=== PATIENT | male | born 1945 | race Two or more races ===

== ENCOUNTER 2019-12-21 12:55 | Emergency (ER) | payer MEDICARE, BC ==
--- OUTSIDE RECORDS SUMMARY | 2019-12-21 13:03 | XMS REPORT | Continuity of Care Document ---
:1945 External Reference #:[id number] Author Name Walter Howard M.D. (transmitted by agent of provider Cristina Aguila) Address [address] [place] [id number] Care Team Providers Name Role Phone Kashif Rebolledo M.D. - Family Medicine Care Team Information Carbon Setter Problems Description No Information Available Social History Type Date Description Comments Sex Unknown ETOH Use Currently consumes alcohol socially Recreational Drug Use Never Used Drugs Allergies, Adverse Reactions, Alerts Description No Known Drug Allergies Medications Active Medications SIG Qnty Indications Ordering Date Provider Lisinopril TK 1 T PO qam Unknown 5mg Tablets Hydrochlorothiazide TK 1 T PO qd Unknown 12.5mg Tablets Cilostazol TK 1 T PO bid Unknown 50mg Tablets Clopidogrel Bisulfate TK 1 T PO D Unknown 75mg Tablets Aspir-Low 1 by mouth Unknown 81mg Tablets DR every day Immunizations Description No Information Available Vital Signs Date Vital Result Comment 07/20/2018 1:31pm BP Systolic Sitting Right Arm 143 mmHg BP Diastolic Sitting Right Arm 94 mmHg Heart Rate 74 /min Respiratory Rate 14 /min Height 69 inches 5'9" Weight 208.00 lb BMI (Body Mass Index) 30.7 kg/m2 BSA (Body Surface Area) 2.10 m2 [place] body weight in kilograms 73 kg O2 % BldC Oximetry 100 % 04/21/2018 10:49am BP Systolic 107 mmHg BP Diastolic 66 mmHg Heart Rate 86 /min Respiratory Rate 16 /min Height 69 inches 5'9" Weight 220.00 lb BMI (Body Mass Index) 32.5 kg/m2 BSA (Body Surface Area) 2.15 m2 [place] body weight in kilograms 73 kg O2 % BldC Oximetry 97 % Results Description No Information Available Procedures Description No Information Available Medical Devices Description No Information Available Encounters Description No Information Available Assessments Description No Information Available Plan of Treatment 07/20/2018 - Walter Howard M.D.K63.1 Perforation of intestine ( nontraumatic)Comments:Clear recommendation made for follow-up colonoscopy declined repeatedly.We will put him in for a recall for few years time. He's been asked to call or return if he has a change of heart regarding the recommendation about follow-up colonoscopy. Functional Status Description No Information Available Mental Status Description No Information Available Referrals Description No Information Available
--- OUTSIDE RECORDS SUMMARY | 2019-12-21 13:03 | XMS REPORT | Continuity of Care Document ---
:1945 External Reference #:[id number] Author Name Kashif Rebolledo M.D. Address [address] [place] [id number] Care Team Providers Name Role Phone Grant Gore LPT - Physical Care Team Information Group Work Program Aide Therapist Kashif Rebolledo MD - Family Medicine Care Team Information Group Work Program Aide Problems Active Problems Provider Date Tobacco user Janelle Izquierdo FNP Onset: 07/17/2014 Mixed hyperlipidemia Kashif Rebolledo M.D. Onset: 01/04/2013 Coronary arteriosclerosis Kashif Rebolleod M.D. Onset: 01/04/2013 Benign essential hypertension Kashif Rebolledo M.D. Onset: 01/04/2013 Peripheral vascular disease Kashif Rebolledo M.D. Onset: 01/04/2013 Carotid artery occlusion Kashif Rebolledo M.D. Onset: 01/04/2013 Hand joint pain Kashif Rebolledo M.D. Onset: 01/04/2013 Degeneration of lumbar intervertebral disc Kashif Rebolledo M.D. Onset: 01/04 Low back pain Kashif Rebolledo M.D. Onset: 01/04/2013 Contact dermatitis Kashif Rebolledo M.D. Onset: 01/04/2013 Osteoarthritis Kashif Rebolledo M.D. Onset: 01/04/2013 Contracture of joint of hand Kashif Rebolledo M.D. Onset: 01/04/2013 Note: DEP Hernia of anterior abdominal wall Kashif Rebolledo M.D. Onset: 06/23/2015 Essential hypertension Kashif Rebolledo M.D. Onset: 11/21/2015 Degeneration of lumbosacral intervertebral Kashif Rebolledo M.D. Onset: 11/21 disc Social History Type Date Description Comments Sex Unknown Tobacco Use Start: Unknown End: Quit 2013 Unknown Tobacco Use Start: Unknown Light tobacco smoker (10 or fewer cigarettes/day) Smoking Status Reviewed: 05/31/19 Light tobacco smoker (10 or fewer cigarettes/day) ETOH Use Currently consumes alcohol PT DRINKS ABOUT 2 TIMES A WEEK Tobacco Use Start: Unknown Patient is a current smoker, smokes some days Allergies, Adverse Reactions, Alerts Description No Known Drug Allergies Medications Active Medications SIG Qnty Indications Ordering Provider Date Lisinopril take 1 tablet by 90tabs I10 Kashif Rebolledo, 04/24/2012 5mg Tablets mouth every M.D. morning Aspir-81 1 by mouth every 100tabs I73.9 Kashif Rebolledo, 04/14/2012 81mg Tablets day M.D. I25.10 I65.23 Clopidogrel Bisulfate 1 tab by mouth 90tabs I73.9 Kashif Rebolledo, 75mg every day M.D. Tablets I25.10 I65.23 Cilostazol 50mg Tablets TK 1 T PO bid I65.23 Unknown Immunizations CPT Code Status Date Vaccine Lot # [id number] Refused 08/16/2014 Flu Vaccine Vital Signs Date Vital Result Comment 12/04/2019 10:01am BP Systolic 128 mmHg BP Diastolic 72 mmHg Height 69.5 inches 5'9.50" Weight 209.00 lb BMI (Body Mass Index) 30.4 kg/m2 Heart Rate 90 /min Respiratory Rate 16 /min 06/01/2019 12:25pm BP Systolic 138 mmHg BP Diastolic 82 mmHg Heart Rate 89 /min Respiratory Rate 18 /min Results Test Acquired Date Facility Test Result H/L Range Note Laboratory test 12/04/2019 [facility] TSH, <pending> finding 113 [facility] (607)- - Hemoglobin A1c <pending> Vitamin D 25 Hydroxy <pending> Procedures Date Code Description Status 12/04/2019 05475 EKG Completed Medical Devices Description No Information Available Encounters Type Date Location Provider Dx Diagnosis Office Visit 12/04/2019 [facility] Kashif Rebolledo, I10 Essential ( primary) 10:15a M.D. hypertension E78.2 Mixed hyperlipidemia I65.23 Occlusion and stenosis of bilateral carotid arteries J44.9 Chronic obstructive pulmonary disease, unspecified I25.10 Athscl heart disease of [place] coronary artery w/o ang pctrs F17.210 Nicotine dependence, cigarettes, uncomplicated M15.9 Polyosteoarthritis, unspecified M24.549 Contracture, unspecified hand I73.9 Peripheral vascular disease, unspecified L20.9 Atopic dermatitis, unspecified J30.9 Allergic rhinitis, unspecified R73.01 Impaired fasting glucose E55.9 Vitamin D deficiency, unspecified M79.643 Pain in unspecified hand K43.9 Ventral hernia without obstruction or gangrene M51.37 Other intervertebral disc degeneration, lumbosacral region R97.20 Elevated prostate specific antigen [PSA] Z00.01 Encounter for general adult medical exam w abnormal findings Z28.20 Immuniz not crd out bec patient decision for unsp reason Assessments Date Code Description Provider 12/04/2019 I10 Essential (primary) hypertension Kashif Rebolledo M.D. 12/04/2019 E78.2 Mixed hyperlipidemia Kashif Rebolledo M.D. 12/04/2019 I65.23 Occlusion and stenosis of bilateral carotid Kashif Rebolledo M.D. arteries 12/04/2019 J44.9 Chronic obstructive pulmonary disease, Kashif Rebolledo M.D. unspecified 12/04/2019 I25.10 Atherosclerotic heart disease of [place] Kashif Rebolledo M.D. coronary artery without angina pectoris 12/04/2019 F17.210 Nicotine dependence, cigarettes, Kashif Rebolledo M.D. uncomplicated 12/04/2019 M15.9 Polyosteoarthritis, unspecified Kashif Rebolledo M.D. 12/04/2019 M24.549 Contracture, unspecified hand Amaury, Ahmad M., M.D. 12/04/2019 I73.9 Peripheral vascular disease, unspecified Kashif Rebolledo M.D. 12/04/2019 L20.9 Atopic dermatitis, unspecified Kashif Rebolledo M.D. 12/04/2019 J30.9 Allergic rhinitis, unspecified Kashif Rebolledo M.D. 12/04/2019 R73.01 Impaired fasting glucose Kashif Rebolledo M.D. 12/04/2019 E55.9 Vitamin D deficiency, unspecified Kashif Rebolledo M.D. 12/04/2019 M79.643 Pain in unspecified hand Kashif Rebolledo M.D. 12/04/2019 K43.9 Ventral hernia without obstruction or Kashif Rebolledo M.D. gangrene 12/04/2019 M51.37 Other intervertebral disc degeneration, Kashif Rebolledo M.D. lumbosacral region 12/04/2019 R97.20 Elevated prostate specific antigen [PSA] Kashif Rebolledo M.D. 12/04/2019 Z00.01 Encounter for general adult medical Kashif Rebolledo M.D. examination with abnormal findings 12/04/2019 Z28.20 Immunization not carried out because of Kashif Rebolledo M.D. patient decision for unspecified reason Plan of Treatment Future Appointment(s):01/02/2020 10:00 am - Kashif Rebolledo M.D. at [facility]12/04/2019 - Kashif Rebolledo M.D.I10 Essential (primary) hypertensionComments:CHECK BP TIW ( PRN)F/U LABDIET AND FLUID COUNSELING LOW SODIUM DIETWT LOSSF/U LABE78.2 Mixed hyperlipidemiaComments:DIET REVIEWED CONTINUE DIETWT LOSSF/U LAB FBWI65.23 Occlusion and stenosis of bilateral carotid arteriesComments:STABLE AND ASYMPTOMATIC F/U WITH SURGERY WITH YEARLY CAROTID U/SJ44.9 Chronic obstructive pulmonary disease, unspecifiedComments: INCREASE PO FLUIDRESTSMOKING KGWDXMDQZC37.10 Atherosclerotic heart disease of [place] coronary artery without angina pectorisComments:F/U WITH CARDIOLOGY CONTINUE WITH RX AND F/U LAB SMOKING YWRPJWUTEH73.210 Nicotine dependence, cigarettes, uncomplicatedComments:SMOKING CESSATION ILEQHTLTFAKK44.9 Polyosteoarthritis, unspecifiedComments:EXERCISE/HEAT/MESSAGETYLENOL OR MOTRIN PRNAVOID HEAVY LIFTINGWT LOSSM24.549 Contracture, unspecified handComments: EXTENSION EXERCISES REVIEWEDUSE HAND SPLIT PRNEXERCISE/HEAT/QHNDIINU78.9 Peripheral vascular disease, unspecifiedComments:SKIN CARE FOOT CARE PODIATRY PRN CAREL20.9 Atopic dermatitis, unspecifiedComments:SKIN CARE INSTRUCTIONS LOTION OR BABY OIL 2-3 APPLICATION PER DAYUSE MOISTURIZING SOAPAVOID PROLONGED WATER EXPOSUREAVOID USING HOT WATER IN VJMTISZ54.9 Allergic rhinitis, unspecifiedComments:INCREASE PO FLUID USE ANTIHISTAMINE PRN SECOND HAND SMOKING AVOIDANCE SMOKING QADKMSUJOF62.01 Impaired fasting glucoseComments:F/U HGAICFS QAC AN HS PRNLOW GLUCOSE DIETE55.9 Vitamin D deficiency, unspecifiedComments: INCREASE EXPOSURE TO SUNREVIEW OF DIETM79.643 Pain in unspecified handComments: EXERCISE/HEAT/MESSAGETYLENOL OR MOTRIN PRNAVOID HEAVY LIFTINGWT LOSSK43.9 Ventral hernia without obstruction or gangreneComments:ABDOMINAL BINDER HQQXKZVDFWB72.37 Other intervertebral disc degeneration, lumbosacral regionComments:EXERCISE/HEAT /MESSAGEAVOID HEAVY LIFTING WT LOSSTYLENOL OR MOTRIN PRNR97.20 Elevated prostate specific antigen [PSA]Comments:F/U WITH UROLOGY PRNF/U PSAZ00.01 Encounter for general adult medical examination with abnormal findingsComments:GOOD NUTRITION /EXERCISEDENTAL/ FLOSSING/ SELF CAREDROWNING/ SUN SAFETYSEAT BELT/ DRIVING SAFETYVIOLENCE PREVENTION/ GUN SAFETY "SAFE AT HOME"EDUCATION GOALS/ ACTIVITIESSOCIAL INTERACTIONFAMILY FUNCTIONINGSELF CONTROLDEPRESSION/ ANXIETYYEARLY PHYSICAL WELLNESS GJGCOEKIJUM62.20 Immunization not carried out because of patient decision for unspecified reasonComments:DECLINED FLU VACCINE , COUNCELLING PROVIDED Functional Status Functional Condition Comment Date Status Glasses Active Trifocal glasses Active Mental Status Description No Information Available Referrals Description No Information Available
[2019-12-21 13:26] VITALS: BP 170/94
--- NOTE | 2019-12-21 13:31 | UC ---
Hypertension HPI - HPI Summary HPI Summary: 74 yo man who comes with concern of increasing blood pressure for the past weeks , since his HCTZ was stopped on 12/05. he has a log of increasing blood pressures , with experience of headache on 12/18 which mostly resolved with use of ibuprofen. He is feeling unwell, but does not have chest pain, palpitations, shortness of breath or edema. He has no hx of stroke and reports no neurological symptoms aside from the headache. He has no nausea or vomiting. I contacted Dr. Rebolledo: HCTZ was stopped due to orthostatic symptoms, with occasional dizziness when blood pressure systolic was less than 120. He did not have a hx of falls. Mr. Chambers says the dizziness was mild, and mostly occurred on days when he was less active. - History of Current Complaint Chief Complaint: UCGeneralIllness Stated Complaint: BLOOD PRESSURE CONCERN Time Seen by Provider: 12/21/19 13:10 Hx Obtained From: Patient Onset/Duration: Gradual Onset, Lasting Weeks - 3 Aggravating Factor(s): Nothing Alleviating Factor(s): Nothing Associated Signs And Symptoms: Positive: Headaches. Negative: Chest Pain, Vision Changes, Numbness, Tingling, Weakness, Dizziness, SOB, Swelling Current Medications: ACEI - Risk Factors Cardiac Risk Factors: Hypertension, Prior VT - Allergies/Home Medications Allergies/Adverse Reactions: Allergies Allergy/AdvReac Type Severity Reaction Status Date / Time No Known Allergies Allergy Verified 12/21/19 13:07 Home Medications: Home Medications Clopidogrel TAB* [Plavix TAB*] 75 mg PO DAILY 06/30/15 [History Confirmed ] Aspirin EC TAB* [Ecotrin EC Low Dose 81 MG*] 81 mg PO DAILY 12/21/19 [History Confirmed 12/21/19] Cilostazol TAB* [Pletal TAB*] 50 mg PO BID 12/21/19 [History Confirmed 12/21/19] Lisinopril TAB* [Prinivil TAB*] 5 mg PO DAILY 12/21/19 [History Confirmed ] hydroCHLOROthiazide [Hydrochlorothiazide] 12.5 mg PO DAILY #30 tablet 12/21/19 [ Rx] PMH/Surg Hx/FS Hx/Imm Hx Cardiovascular History: Cardiac Disease, Hypertension, Other - Peripheral vascular disease. - Surgical History Surgical History: Yes Surgery Procedure, Year, and Place: Stents placed bilat femoral arteries, carotid artery - Social History Occupation: Retired Lives: With Family Alcohol Use: <3 beers/weekly Substance Use Type: None Smoking Status (MU): Light Every Day Tobacco Smoker Type: Cigarettes Amount Used/How Often: <1/2 PPD Length of Time of Smoking/Using Tobacco: Since Age 18 Review of Systems All Other Systems Reviewed And Are Negative: Yes Constitutional: Positive: Negative Skin: Positive: Negative Eyes: Positive: Negative. Negative: Blurred Vision ENT: Positive: Negative Respiratory: Positive: Negative. Negative: Shortness Of Breath, Cough Cardiovascular: Negative: Palpitations, Chest Pain Gastrointestinal: Positive: Negative Genitourinary: Positive: Negative Motor: Positive: Negative Neurovascular: Positive: Negative Musculoskeletal: Positive: Negative Neurological/Mental Status: Positive: Headache - now resolved. Psychological: Positive: Negative Is Patient Immunocompromised?: No Physical Exam Triage Information Reviewed: Yes Appearance: Well-Appearing - alert elderly man Vital Signs: Initial Vital Signs Temp 98.1 F 12/21/19 13:06 Pulse 76 12/21/19 13:06 Resp 18 12/21/19 13:06 BP 195/102 12/21/19 13:06 Pulse Ox 100 12/21/19 13:06 Eye Exam: Other - ARMANDO, could not see fundi well Eyes: Positive: Conjunctiva Clear ENT: Positive: Pharynx normal Neck exam: Other - no carotid bruits Neck: Positive: Supple, Nontender, No Lymphadenopathy Respiratory: Positive: Lungs clear, Normal breath sounds Abdominal Exam: Other - obese abdomen with midline scar Abdomen Description: Positive: Nontender, No Organomegaly, Soft, Distended Musculoskeletal: Positive: Strength Intact, Edema @ - trace of pitting edema both ankles Neurological: Positive: Alert, Muscle Tone Normal Psychological Exam: Normal Skin Exam: Normal Hypertension Course/Dx - Course Course Of Treatment: Resume HCTZ. Dr. Rebolledo is aware that he will be resuming this. - Differential Dx/Diagnosis Differential Diagnosis/HQI PQRI: Hypertension Provider Diagnosis: Hypertension - Physician Notifications Discussed Patient Care With: Kashif Rebolledo Time Discussed With Above Provider: 13:50 Discharge ED - Sign-Out/Discharge Documenting (check all that apply): Patient Departure All imaging exams completed and their final reports reviewed: No Studies - Discharge Plan Condition: Stable Disposition: HOME Prescriptions: hydroCHLOROthiazide [Hydrochlorothiazide] 12.5 mg PO DAILY #30 tablet Patient Education Materials: Chronic Hypertension (ED) Referrals: Kashif Rebolledo MD [Primary Care Provider] - Additional Instructions: As discussed, resume use of hydrochlorthiazide today, 12.5mg daily. Take the first dose today, and tomorrow go back to one daily in the morning. Continue lisinopril 5mg daily. Continue to take home blood pressure readings, but it will take up to a week to see a consistent drop in your blood pressure. Follow up with Dr. Rebolledo on 01/01 as arranged. If you have chest pain or any symptoms of stroke such as sided weakness of difficulty with speech, please proceed to the emergency room. - Billing Disposition and Condition Condition: STABLE Disposition: Home
== END 2019-12-21 14:21 | disposition home or self-care (01) ==
LOC: UCCORT 12:55
DX: I10 Essential (primary) hypertension (principal); I73.9 Peripheral vascular disease, unspecified; Z79.82 Long term (current) use of aspirin; Z79.899 Other long term (current) drug therapy; F17.210 Nicotine dependence, cigarettes, uncomplicated
CPT/HCPCS: 99212; G0463

== ENCOUNTER 2021-07-16 15:17 | Inpatient (IN) ==
[2021-07-16 16:37] LABS: ABS Basophils 0.1 10^3/ul (0-0.2); ABS Eosinophils 0.4 10^3/ul (0-0.6); ABS Lymphocytes 1.6 10^3/ul (1.0-4.8); ABS Monocytes 0.6 10^3/ul (0-0.8); ABS Neutrophils 5.5 10^3/ul (1.5-7.7); Eosinophil % 4.5 %; Hematocrit 38 % (42-52); Hemoglobin 13.1 g/dL (14.0-18.0); Lymphocyte % 19.1 %; Mean Corpuscular HGB Conc 35 g/dL (31-36); Mean Corpuscular Hemoglobin 30 pg (27-31); Mean Corpuscular Volume 87 fL (80-94); Mean Platelet Volume 6.9 fL (7.4-10.4); Platelet Count 298 10^3/uL (150-450); Red Blood Count 4.32 10^6 /uL (4.18-5.48); Red Cell Distribution Width 15 % (10-15); White Blood Count 8.1 10^3/uL (3.5-10.8)
[2021-07-16 16:55] LABS: Troponin I 0.01 ng/mL (<0.03)
[2021-07-16 17:26] LABS: TSH Ultra Thyroid Stim Horm 1.99 mcIU/mL (0.34-5.60)
[2021-07-16 17:32] LABS: ALT 5 U/L (7-52); Albumin/Globulin Ratio 1.8 (1-3); Alkaline Phosphatase 74 U/L (35-149); Blood Urea Nitrogen 13 mg/dL (6-24); CO2 Carbon Dioxide 27 mmol/L (22-32); Calcium 8.8 mg/dL (8.6-10.3); Chloride 89 mmol/L (101-111); EGFR African American 78.3 (>60); EGFR Non-African American 64.7 (>60); Globulin 2.2 g/dL (2-4); Glucose 119 mg/dL (70-100); Sodium 124 mmol/L (135-145); Total Protein 6.2 g/dL (6.4-8.9)
[2021-07-16 17:41] LABS: Anion Gap 8 mmol/L (2-11)
[2021-07-16] MEDS ORDERED: NS 0.9% 500 ml BAG 500 ML IV SCH (18:00)
[2021-07-16] MEDS ORDERED: Al Hydrox/Mg Hydrox/Simet LIQ 30 ML UDC PO PRN (18:38)
[2021-07-16 20:44] LABS: Rapid COVID-19 Molecular Undetected (Undetected)
[2021-07-16] MEDS ORDERED: Iohexol 300 (CONTRAST) 10 ML SDV IV ONE (21:00)
[2021-07-16] MEDS: Heparin 5000 UNITS/ML 1 mL VIAL SUBCUT SCH (22:30)
[2021-07-16 23:56] LABS: Magnesium 1.6 mg/dL (1.9-2.7)
[2021-07-17] MEDS ORDERED: Magnesium Sulf 4 GM/100 ML IV 4,000 MG/100 ML BAG IVPB ONE (00:08)
[2021-07-17 04:03] LABS: Urine Appearance Clear; Urine Bilirubin Negative (Negative); Urine Blood 1+ (Negative); Urine Color Yellow; Urine Glucose Negative (Negative); Urine Ketones Negative (Negative); Urine Nitrite Negative (Negative); Urine Protein Negative (Negative); Urine Urobilinogen Negative (Negative)
[2021-07-17 04:19] LABS: Calcium 8.9 mg/dL (8.6-10.3); Potassium 3.8 mmol/L (3.5-5.0)
[2021-07-17 04:25] LABS: EGFR African American 92.8 (>60); EGFR Non-African American 76.7 (>60)
[2021-07-17 04:26] LABS: Troponin I 0.01 ng/mL (<0.03)
[2021-07-17 04:27] LABS: Urine Bacteria Absent (Absent); Urine Red Blood Cell Trace(0-2/hpf) (Absent); Urine White Blood Cell Trace(0-5/hpf) (Absent)
[2021-07-17] MEDS: Heparin 5000 UNITS/ML 1 mL VIAL SUBCUT SCH (06:11)
[2021-07-17 07:25] LABS: Calcium 8.8 mg/dL (8.6-10.3); EGFR African American 96.3 (>60); EGFR Non-African American 79.6 (>60); Potassium 3.6 mmol/L (3.5-5.0)
[2021-07-17] MEDS: Aspirin EC 81 mg TAB.EC (enteric coated) PO SCH (07:47)
[2021-07-17] MEDS ORDERED: NS 0.9% 1000 ml BAG 1,000 ML IV SCH ×2 (08:30→18:26)
[2021-07-17] MEDS ORDERED: NS 0.9% 500 ml BAG 500 ML IV ONE (09:28)
[2021-07-17 11:57] LABS: INR 1.01 (0.86-1.15)
[2021-07-17 12:12] LABS: EGFR African American 87.4 (>60); EGFR Non-African American 72.3 (>60); Potassium 3.6 mmol/L (3.5-5.0)
[2021-07-17 17:15] LABS: Calcium 8.3 mg/dL (8.6-10.3); EGFR African American 95.1 (>60); EGFR Non-African American 78.6 (>60); Potassium 3.5 mmol/L (3.5-5.0)
[2021-07-17 21:39] LABS: Calcium 8.2 mg/dL (8.6-10.3); EGFR African American 97.5 (>60); EGFR Non-African American 80.6 (>60); Potassium 3.5 mmol/L (3.5-5.0)
[2021-07-18 06:34] LABS: ABS Basophils 0.1 10^3/ul (0-0.2); ABS Eosinophils 0.4 10^3/ul (0-0.6); ABS Lymphocytes 2.1 10^3/ul (1.0-4.8); ABS Monocytes 0.5 10^3/ul (0-0.8); ABS Neutrophils 3.4 10^3/ul (1.5-7.7); Eosinophil % 6.5 %; Hematocrit 36 % (42-52); Hemoglobin 12.3 g/dL (14.0-18.0); Lymphocyte % 32.5 %; Mean Corpuscular HGB Conc 34 g/dL (31-36); Mean Corpuscular Hemoglobin 30 pg (27-31); Mean Corpuscular Volume 87 fL (80-94); Mean Platelet Volume 6.7 fL (7.4-10.4); Nucleated Red Blood Cells % 0.1; Platelet Count 251 10^3/uL (150-450); Red Blood Count 4.15 10^6 /uL (4.18-5.48); Red Cell Distribution Width 14 % (10-15); White Blood Count 6.5 10^3/uL (3.5-10.8)
[2021-07-18 06:52] LABS: Calcium 8.2 mg/dL (8.6-10.3); EGFR African American 101.3 (>60); EGFR Non-African American 83.8 (>60); Potassium 3.7 mmol/L (3.5-5.0)
[2021-07-18 08:25] LABS: Magnesium 1.9 mg/dL (1.9-2.7)
[2021-07-18] MEDS: Aspirin EC 81 mg TAB.EC (enteric coated) PO SCH (09:35)
[2021-07-18] MEDS: Ondansetron 4 mg VIAL 2 MG/ML 2 ml VIAL IV PRN (09:36)
[2021-07-18 10:26] LABS: Blood Urea Nitrogen 10 mg/dL (6-24); CO2 Carbon Dioxide 21 mmol/L (22-32); Calcium 7.8 mg/dL (8.6-10.3); Chloride 95 mmol/L (101-111); EGFR African American 97.5 (>60); EGFR Non-African American 80.6 (>60); Glucose 116 mg/dL (70-100); Sodium 123 mmol/L (135-145)
[2021-07-18 11:07] LABS: Anion Gap 7 mmol/L (2-11)
[2021-07-18 16:18] LABS: Calcium 8.2 mg/dL (8.6-10.3); EGFR African American 95.1 (>60); EGFR Non-African American 78.6 (>60); Potassium 3.8 mmol/L (3.5-5.0)
[2021-07-19 04:56] LABS: ABS Basophils 0.1 10^3/ul (0-0.2); ABS Eosinophils 0.6 10^3/ul (0-0.6); ABS Lymphocytes 2.7 10^3/ul (1.0-4.8); ABS Monocytes 0.6 10^3/ul (0-0.8); ABS Neutrophils 4.1 10^3/ul (1.5-7.7); Hematocrit 33 % (42-52); Hemoglobin 11.2 g/dL (14.0-18.0); Lymphocyte % 33.3 %; Mean Corpuscular HGB Conc 34 g/dL (31-36); Mean Corpuscular Hemoglobin 30 pg (27-31); Mean Corpuscular Volume 88 fL (80-94); Mean Platelet Volume 6.7 fL (7.4-10.4); Platelet Count 247 10^3/uL (150-450); Red Blood Count 3.75 10^6 /uL (4.18-5.48); Red Cell Distribution Width 14 % (10-15); White Blood Count 8.1 10^3/uL (3.5-10.8)
[2021-07-19 05:08] LABS: Calcium 8.5 mg/dL (8.6-10.3); EGFR African American 90.6 (>60); EGFR Non-African American 74.9 (>60)
[2021-07-19] MEDS: Aspirin EC 81 mg TAB.EC (enteric coated) PO SCH (08:31)
[2021-07-19] MEDS: Ondansetron 4 mg VIAL 2 MG/ML 2 ml VIAL IV PRN (14:24)
[2021-07-19 15:33] VITALS: BP 137/75
== END 2021-07-19 17:40 | disposition home or self-care (01) | DRG 312 ==
LOC: MEDTELE 15:17 → ED 15:17 → MEDTELE 20:39 → OBSVTOIN 21:26 → SUATTDRO 21:26
PROVIDERS: ADMIT Internal Medicine; ATTEND Hospitalist

== ENCOUNTER 2023-10-23 19:18 | Inpatient (IN) ==
[2023-10-23 20:08] LABS: ABS Lymphocytes 1.1 10^3/uL (1.0-4.8); ABS Monocytes 0.7 10^3/uL (0.0-1.1); ABS Neutrophils 11.8 10^3/uL (1.5-7.6); ABS Nucleated RBC 0.03 10^3/ul; Hematocrit 41.2 % (38-53); Hemoglobin 13.8 g/dL (13.2-16.3); Lymphocyte % 7.8 %; Mean Corpuscular Hgb Conc 33.5 g/dL (31-36); Mean Corpuscular Volume 86.6 fL (80-97); Mean Platelet Volume 7.1 fL (7.5-11.2); Nucleated Red Blood Cells % 0.2 %/100WBC (0.0-0.8); Platelet Count 331 10^3/uL (150-450); Red Blood Count 4.75 10^6/uL (4.06-5.63); Red Cell Distribution Width 15.6 % (12-17); White Blood Count 13.7 10^3/uL (3.6-10.2)
[2023-10-23 20:27] LABS: Albumin 3.4 g/dL (3.2-5.2); Albumin/Globulin Ratio 2.1 (1-3); Calcium 7.2 mg/dL (8.6-10.3); Creatinine, Serum 1.43 mg/dL (0.67-1.17); Globulin 1.6 g/dL (2-4); Magnesium 1.5 mg/dL (1.9-2.7); Potassium 3.9 mmol/L (3.5-5.0); Total Bilirubin 0.6 mg/dL (0.2-1.0); eGFR CKD-EPI 49.5 (>60)
[2023-10-23] MEDS ORDERED: Ondansetron 4 mg VIAL 2 MG/ML 2 ml VIAL IV ONE (21:08)
[2023-10-23 21:15] LABS: TSH Ultra Thyroid Stim Horm 1.32 mcIU/mL (0.34-5.60)
[2023-10-23 21:17] LABS: Free T4 0.54 ng/dL (0.61-1.12)
[2023-10-23 21:31] LABS: High Sensitivity Troponin 1 Hr 5 pg/mL (<20)
[2023-10-23] MEDS ORDERED: Iodixanol (CONTRAST) 320 MG/ML 100 ML SDV IV ONE (23:09)
[2023-10-23] MEDS ORDERED: NS 0.9% 1000 ml BAG 500 ML IV ONE (23:39)
[2023-10-24 00:46] LABS: Urine Appearance Cloudy; Urine Bilirubin 1+ (Negative); Urine Blood Negative (Negative); Urine Color Amber; Urine Glucose Negative (Negative); Urine Ketones Trace (Negative); Urine Nitrite Negative (Negative); Urine Protein 2+(100 mg/dL) (Negative); Urine Specific Gravity 1.021 (1.002-1.030); Urine Urobilinogen Positive (Negative)
[2023-10-24 00:52] LABS: Urine Bacteria 1+ (Absent); Urine Red Blood Cell Absent (Absent); Urine Squamous Epithelial Cell Present (Absent); Urine White Blood Cell Absent (Absent)
[2023-10-24] MEDS ORDERED: Lactated Ringers 1000 ml BAG 1,000 ML IV ONE ×2 (03:15→07:00)
[2023-10-24] MEDS ORDERED: Ondansetron 4 mg VIAL 2 MG/ML 2 ml VIAL IV ONE (04:41)
[2023-10-24] MEDS ORDERED: Piperacillin/Tazobac 3.375 BAG 3.375 GM/100 ML BAG IV ONE (06:51)
[2023-10-24] MEDS ORDERED: Acetaminophen IV 1 GM/100ML 1,000 MG/100 ML BAG IV ONE ×2 (07:02→07:04)
[2023-10-24 07:47] LABS: ABS Lymphocytes 0.5 10^3/uL (1.0-4.8); ABS Monocytes 0.9 10^3/uL (0.0-1.1); ABS Neutrophils 7.6 10^3/uL (1.5-7.6); Hematocrit 37.7 % (38-53); Hemoglobin 12.7 g/dL (13.2-16.3); Lymphocyte % 5.8 %; Mean Corpuscular Hemoglobin 29.3 pg (27-33); Mean Corpuscular Hgb Conc 33.8 g/dL (31-36); Mean Corpuscular Volume 86.7 fL (80-97); Mean Platelet Volume 7.1 fL (7.5-11.2); Platelet Count 274 10^3/uL (150-450); Red Blood Count 4.34 10^6/uL (4.06-5.63); Red Cell Distribution Width 15.7 % (12-17); White Blood Count 9.1 10^3/uL (3.6-10.2)
[2023-10-24 07:59] LABS: Venous Bicarbonate HCO3 19.5 mmol/L (24-28)
[2023-10-24 08:05] LABS: Albumin 3.8 g/dL (3.2-5.2); Albumin/Globulin Ratio 1.9 (1-3); Calcium 8.7 mg/dL (8.6-10.3); Creatinine, Serum 2.33 mg/dL (0.67-1.17); Potassium 4.9 mmol/L (3.5-5.0); Total Bilirubin 0.9 mg/dL (0.2-1.0); Total Protein 5.8 g/dL (6.4-8.9); eGFR CKD-EPI 27.6 (>60)
[2023-10-24] MEDS ORDERED: Metoclopramide 5 MG/ML VIAL (10 mg) ONE (08:06)
[2023-10-24] MEDS ORDERED: Metoclopramide 5 MG/ML VIAL (10 mg) IV ONE (08:07)
[2023-10-24 08:52] LABS: Activated Partial Thrombo Time 30.4 seconds (26.0-38.0); INR 1.2 (0.83-1.13)
[2023-10-24] MEDS ORDERED: Zosyn per Pharmacy NOTE FOLLOW UP SCH (10:00)
[2023-10-24] MEDS ORDERED: fentaNYL 250 mcg/5 ml 50 MCG/ML 5 ml VIAL (250 MCG) ONE (10:36)
[2023-10-24] MEDS ORDERED: Succinylcholine 200 mg VIAL 20 mg/ml 10 ml VIAL (200 mg) ONE (10:36)
[2023-10-24] MEDS ORDERED: Desflurane 240 ML INH ONE (10:36)
[2023-10-24] MEDS ORDERED: Rocuronium 50 mg VIAL 10 mg/ml 5 ml VIAL (50 mg) ONE ×2 (10:36→11:43)
[2023-10-24] MEDS ORDERED: Etomidate 20 mg/10 ml 2 MG/ML 10 ml VIAL ONE (10:36)
[2023-10-24] MEDS ORDERED: HYDROmorphone 0.5 MG/0.5 ML SYRINGE IV SLOW PU PRN (13:55)
[2023-10-24 15:12] LABS: ABS Monocytes 0.5 10^3/uL (0.0-1.1); ABS Neutrophils 5.6 10^3/uL (1.5-7.6); ABS Nucleated RBC 0.01 10^3/ul; Hematocrit 36.6 % (38-53); Hemoglobin 12.3 g/dL (13.2-16.3); Lymphocyte % 13.5 %; Mean Corpuscular Hemoglobin 29.4 pg (27-33); Mean Corpuscular Hgb Conc 33.6 g/dL (31-36); Mean Corpuscular Volume 87.7 fL (80-97); Mean Platelet Volume 7.1 fL (7.5-11.2); Nucleated Red Blood Cells % 0.1 %/100WBC (0.0-0.8); Platelet Count 257 10^3/uL (150-450); Red Blood Count 4.17 10^6/uL (4.06-5.63); Red Cell Distribution Width 15.4 % (12-17); White Blood Count 7.1 10^3/uL (3.6-10.2)
[2023-10-24 15:29] LABS: Calcium 8.3 mg/dL (8.6-10.3); Creatinine, Serum 2.44 mg/dL (0.67-1.17); Magnesium 1.8 mg/dL (1.9-2.7); eGFR CKD-EPI 26.1 (>60)
[2023-10-24] MEDS ORDERED: Magnesium Sulfate 2 gm BAG 2 GM/50 ML BAG IVPB ONE (15:37)
[2023-10-24] MEDS: ZOSYN 3.375 GM Q8H per EXTENDED INFUSION IV SCH ×2 (16:13→21:11)
[2023-10-24] MEDS ORDERED: Lactated Ringers 1000 ml BAG 1,000 ML IV SCH (17:00)
[2023-10-24] MEDS: Acetaminophen IV 1 GM/100ML 1,000 MG/100 ML BAG IV PRN (19:48)
[2023-10-25 04:29] LABS: ABS Lymphocytes 0.8 10^3/uL (1.0-4.8); ABS Monocytes 0.4 10^3/uL (0.0-1.1); ABS Neutrophils 5.4 10^3/uL (1.5-7.6); Eosinophil % 0.1 %; Hematocrit 33.1 % (38-53); Hemoglobin 11.4 g/dL (13.2-16.3); Lymphocyte % 11.8 %; Mean Corpuscular Hemoglobin 29.9 pg (27-33); Mean Corpuscular Hgb Conc 34.5 g/dL (31-36); Mean Corpuscular Volume 86.6 fL (80-97); Mean Platelet Volume 7.4 fL (7.5-11.2); Platelet Count 235 10^3/uL (150-450); Red Blood Count 3.82 10^6/uL (4.06-5.63); Red Cell Distribution Width 15.7 % (12-17); White Blood Count 6.7 10^3/uL (3.6-10.2)
[2023-10-25 04:53] LABS: Anion Gap 8 mmol/L (2-16); Blood Urea Nitrogen 40 mg/dL (6-24); CO2 Carbon Dioxide 20 mmol/L (22-32); Calcium 8.1 mg/dL (8.6-10.3); Chloride 105 mmol/L (101-111); Creatinine, Serum 2.25 mg/dL (0.67-1.17); Glucose 103 mg/dL (70-100); Magnesium 2.3 mg/dL (1.9-2.7); Sodium 133 mmol/L (135-145); eGFR CKD-EPI 28.8 (>60)
[2023-10-25] MEDS ORDERED: Levothyroxine 100 MCG/5 ML VIAL IV SCH (06:00)
[2023-10-25 06:38] LABS: Potassium, Whole Blood 4.7 mmol/L (3.4-4.5)
[2023-10-25] MEDS: ZOSYN 3.375 GM Q8H per EXTENDED INFUSION IV SCH ×2 (07:35→16:13)
[2023-10-25] MEDS: Acetaminophen IV 1 GM/100ML 1,000 MG/100 ML BAG IV PRN (08:45)
[2023-10-25] MEDS ORDERED: Morphine 2 MG/ML SYRINGE IV PRN (10:27)
[2023-10-25] MEDS: Enoxaparin 30 MG/0.3 ML SYR SUBCUT SCH (11:40)
[2023-10-25] MEDS ORDERED: Lactated Ringers 1000 ml BAG 500 ML IV ONE (13:38)
[2023-10-25] MEDS: NS 0.9% 1000 ml BAG 1,000 ML IV SCH (16:12)
[2023-10-25] MEDS: Ondansetron 4 mg VIAL 2 MG/ML 2 ml VIAL IV PRN (16:13)
[2023-10-25] MEDS ORDERED: CILOSTAZOL 50 MG PO SCH (21:00)
[2023-10-26] MEDS: NS 0.9% 1000 ml BAG 1,000 ML IV SCH (00:02)
[2023-10-26] MEDS: ZOSYN 3.375 GM Q8H per EXTENDED INFUSION IV SCH (00:05)
[2023-10-26 01:05] LABS: ABS Lymphocytes 0.7 10^3/uL (1.0-4.8); ABS Monocytes 0.4 10^3/uL (0.0-1.1); ABS Neutrophils 7.2 10^3/uL (1.5-7.6); Hemoglobin 11.1 g/dL (13.2-16.3); Lymphocyte % 7.9 %; Mean Corpuscular Hemoglobin 29.4 pg (27-33); Mean Corpuscular Hgb Conc 33.6 g/dL (31-36); Mean Corpuscular Volume 87.8 fL (80-97); Mean Platelet Volume 7.3 fL (7.5-11.2); Platelet Count 204 10^3/uL (150-450); Red Blood Count 3.76 10^6/uL (4.06-5.63); Red Cell Distribution Width 15.5 % (12-17); White Blood Count 8.2 10^3/uL (3.6-10.2)
[2023-10-26 01:11] LABS: Calcium 8.3 mg/dL (8.6-10.3); Creatinine, Serum 2.18 mg/dL (0.67-1.17); Potassium 4.5 mmol/L (3.5-5.0); eGFR CKD-EPI 29.9 (>60)
[2023-10-26] MEDS: Ondansetron 4 mg VIAL 2 MG/ML 2 ml VIAL IV PRN (03:54)
[2023-10-26 08:08] LABS: ABS Lymphocytes 0.7 10^3/uL (1.0-4.8); ABS Monocytes 0.4 10^3/uL (0.0-1.1); ABS Neutrophils 7.3 10^3/uL (1.5-7.6); ABS Nucleated RBC 0.01 10^3/ul; Eosinophil % 0.1 %; Hematocrit 31.7 % (38-53); Hemoglobin 10.5 g/dL (13.2-16.3); Mean Corpuscular Hemoglobin 29.4 pg (27-33); Mean Corpuscular Hgb Conc 33.3 g/dL (31-36); Mean Corpuscular Volume 88.3 fL (80-97); Mean Platelet Volume 7.6 fL (7.5-11.2); Nucleated Red Blood Cells % 0.1 %/100WBC (0.0-0.8); Platelet Count 200 10^3/uL (150-450); Red Blood Count 3.59 10^6/uL (4.06-5.63); Red Cell Distribution Width 15.6 % (12-17); White Blood Count 8.4 10^3/uL (3.6-10.2)
[2023-10-26] MEDS ORDERED: Pneumococcal Vac 23-Polyvalent IM ONE (09:00)
[2023-10-26 09:19] LABS: Anion Gap 9 mmol/L (2-16); Blood Urea Nitrogen 42 mg/dL (6-24); CO2 Carbon Dioxide 19 mmol/L (22-32); Calcium 7.8 mg/dL (8.6-10.3); Chloride 107 mmol/L (101-111); Creatinine, Serum 2.03 mg/dL (0.67-1.17); Glucose 61 mg/dL (70-100); Sodium 135 mmol/L (135-145); eGFR CKD-EPI 32.5 (>60)
[2023-10-26] MEDS: Enoxaparin 30 MG/0.3 ML SYR SUBCUT SCH (13:03)
[2023-10-27] MEDS: NS 0.9% 1000 ml BAG 1,000 ML IV SCH (01:49)
[2023-10-27 05:43] LABS: Hematocrit 30.5 % (38-53); Hemoglobin 10.4 g/dL (13.2-16.3); Mean Corpuscular Hemoglobin 29.5 pg (27-33); Mean Corpuscular Volume 86.7 fL (80-97); Mean Platelet Volume 7.4 fL (7.5-11.2); Platelet Count 266 10^3/uL (150-450); Red Blood Count 3.52 10^6/uL (4.06-5.63); Red Cell Distribution Width 15.6 % (12-17); White Blood Count 12.1 10^3/uL (3.6-10.2)
[2023-10-27 06:03] LABS: Calcium 8.4 mg/dL (8.6-10.3); Creatinine, Serum 1.72 mg/dL (0.67-1.17); Magnesium 2.1 mg/dL (1.9-2.7); eGFR CKD-EPI 39.7 (>60)
[2023-10-27] MEDS: Enoxaparin 30 MG/0.3 ML SYR SUBCUT SCH (12:09)
[2023-10-27] MEDS: NS 0.45% 1000 ml BAG 1,000 ML IV SCH (15:41)
[2023-10-28] MEDS: NS 0.45% 1000 ml BAG 1,000 ML IV SCH (01:42)
[2023-10-28 06:11] LABS: Hematocrit 26.5 % (38-53); Hemoglobin 9.1 g/dL (13.2-16.3); Mean Corpuscular Hemoglobin 29.7 pg (27-33); Mean Corpuscular Hgb Conc 34.3 g/dL (31-36); Mean Corpuscular Volume 86.4 fL (80-97); Mean Platelet Volume 7.2 fL (7.5-11.2); Platelet Count 239 10^3/uL (150-450); Red Blood Count 3.07 10^6/uL (4.06-5.63); Red Cell Distribution Width 15.5 % (12-17); White Blood Count 10.7 10^3/uL (3.6-10.2)
[2023-10-28 06:31] LABS: Calcium 7.8 mg/dL (8.6-10.3); Creatinine, Serum 1.34 mg/dL (0.67-1.17); Potassium 3.4 mmol/L (3.5-5.0); eGFR CKD-EPI 53.6 (>60)
[2023-10-28 07:17] LABS: ABS Eosinophils 0.1 10^3/uL (0.0-0.5); ABS Lymphocytes 1.5 10^3/uL (1.0-4.8); ABS Monocytes 0.7 10^3/uL (0.0-1.1); ABS Neutrophils 8.4 10^3/uL (1.5-7.6); Eosinophil % 0.5 %; Lymphocyte % 14.4 %
[2023-10-28] MEDS ORDERED: Potassium Chloride LIQUID 20 MEQ/15 ML LIQUID NG TUBE ONE (07:53)
[2023-10-28] MEDS: Enoxaparin 30 MG/0.3 ML SYR SUBCUT SCH (11:50)
[2023-10-29 06:14] LABS: Hematocrit 27.4 % (38-53); Hemoglobin 9.4 g/dL (13.2-16.3); Mean Corpuscular Hemoglobin 29.5 pg (27-33); Mean Corpuscular Hgb Conc 34.2 g/dL (31-36); Mean Corpuscular Volume 86.1 fL (80-97); Mean Platelet Volume 7.1 fL (7.5-11.2); Platelet Count 227 10^3/uL (150-450); Red Blood Count 3.19 10^6/uL (4.06-5.63); Red Cell Distribution Width 15.1 % (12-17); White Blood Count 8.4 10^3/uL (3.6-10.2)
[2023-10-29 06:22] LABS: Calcium 7.8 mg/dL (8.6-10.3); Creatinine, Serum 1.14 mg/dL (0.67-1.17); Magnesium 1.6 mg/dL (1.9-2.7); Potassium 3.5 mmol/L (3.5-5.0)
[2023-10-29] MEDS ORDERED: Potassium Chlor 20 meq TAB.ER PO ONE (07:06)
[2023-10-29] MEDS ORDERED: Magnesium Sulf 4 GM/100 ML IV 4,000 MG/100 ML BAG IVPB ONE (07:06)
[2023-10-29 07:22] LABS: ABS Eosinophils 0.4 10^3/uL (0.0-0.5); ABS Lymphocytes 1.8 10^3/uL (1.0-4.8); ABS Monocytes 0.7 10^3/uL (0.0-1.1); ABS Neutrophils 5.5 10^3/uL (1.5-7.6); ABS Nucleated RBC 0.01 10^3/ul; Eosinophil % 4.3 %; Lymphocyte % 21.6 %; Nucleated Red Blood Cells % 0.1 %/100WBC (0.0-0.8)
[2023-10-29 10:19] VITALS: BP 139/81
[2023-10-29] MEDS: Enoxaparin 30 MG/0.3 ML SYR SUBCUT SCH (13:24)
== END 2023-10-29 15:19 | disposition home or self-care (01) | DRG 854 ==
LOC: ED 19:18 → SSU 10-24 08:37 → OR 10-24 08:37 → SUATTDRO 10-24 14:36 → ICU 10-24 14:36 → SSU 10-25 15:54
PROVIDERS: ADMIT Internal Medicine Pulmonary Disease; ATTEND Student in an Organized Health Care Education/Training Program